=== PATIENT | male | born 1940 | race Two or more races ===

== ENCOUNTER 2025-02-10 04:41 | Emergency (ER) | payer MEDICARE, MEDICAID, SELFPAY ==
[2025-02-10] VITALS (7 sets, daily range): BP systolic 99–128; BP diastolic 62–97; PULSE 76–99; RESP 16–18; TEMP 36.5–37.1; O2SAT 95–98; BMI 107.5
--- NOTE | 2025-02-10 05:26 | EKG_ITS ---
[facility] Test Date: 2025-02-10 Pat Name: CHEIKH LEW Department: Room: - Gender: Male Division Director: : 1940 Requested By: Hunter Cote Order Number: [id number] Reading MD: Hunter Cote Measurements Intervals [place] Rate: 96 P: 39 NH: 183 QRS: -20 QRSD: 124 T: -6 QT: 336 QTc: 426 Interpretive Statements SINUS RHYTHM RIGHT BUNDLE BRANCH BLOCK [120+ ms QRS DURATION, UPRIGHT V1, 40+ ms S IN I/aVL/V4/V5/V6] Compared to ECG 05/02/2020 18:10:48 Right bundle-branch block now present Sinus tachycardia no longer present T-wave abnormality no longer present /store/S0/[id number]/ecg/[id number].pdf
--- NOTE | 2025-02-10 05:26 | XR_ITS ---
EXAMINATION: AP chest single view TECHNIQUE: AP portable upright chest single view Date and time: February 10, 2025, 0535 hours, comparison May 02, 2020 INDICATIONS: Shortness of breath chest pain today FINDINGS: Mild enlargement cardiac contour Left perihilar basilar lung opacity consistent with pneumonia Ectatic thoracic aorta. Severe osteopenia IMPRESSION: Fairly diffuse left lung pneumonia
[2025-02-10 06:44] LABS: Collection Type, Urine Clean Catch
--- NOTE | 2025-02-10 06:51 | PD.EDSOB ---
ED SOB =RME/HPI General Chief Complaint: General Adult/Misc Complain Stated Complaint: NO COMPLAINT Time Seen by Provider: 02/10/25 06:44 Arrival date/time: 02/10/25 04:41 Limitations: no limitations RME / HPI RME / HPI Narrative: DR. 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 He presents to the Emergency Department with complaints of persistent shortness of breath since his surgery on 02/08. He denies chest pain, fever, or chills but reports a cough ongoing for about one month. Patient is currently on Eliquis, Jardiance, insulin, and metformin. Related Data Previous Rx's ?Medication ?Instructions ?Recorded levofloxacin 500 mg tablet 500 mg PO QDAY #6 tabs 05/03/20 levofloxacin 500 mg tablet 500 mg PO Q24H 5 days #5 tabs 02/10/25 Allergies Allergy/AdvReac Type Severity Reaction Status Date / Time No Known Allergies Allergy Verified 05/02/20 17:20 Review of Systems Review of Systems Systems Reviewed: All systems reviewed, normal except as documented Past Medical History Past Medical History CARDIAC: Positive Cardiac Disorders ENDOCRINE: Positive Diabetes Mellitus Type 2 Social History SMOKING STATUS: Never smoker SUBSTANCE USE: does not use ALCOHOL: Never ED Exam General Limitations: Present no limitations General appearance: Present alert and in no apparent distress Head Head exam: Present atraumatic, normocephalic and normal inspection Eye Eye exam: Present normal appearance, PERRL and EOMI ENT ENT exam: Present normal exam, normal oropharynx and mucous membranes moist Neck Neck exam: Present normal inspection, full ROM and trachea midline Chest Chest inspection: Present normal inspection and symmetric chest wall rise Respiratory Respiratory exam: Present respiratory distress (Decreased air movement on the left side, no wheezing or rales noted on the right.) Cardiovascular Cardiovascular exam: Present regular rate, normal rhythm and normal heart sounds Abdominal Exam Abdominal exam: Present other (Soft, non-distended, left nephrectomy scar and vertical abdominal scar well-healed, no tenderness.) Extremities Exam Extremities exam: Present normal inspection and full ROM Back Exam Back exam: Present normal inspection and full ROM Neurological Exam Neurological exam: Present alert, oriented X3 and CN II-XII intact Psychiatric Psychiatric exam: Present normal affect and normal mood Skin Skin exam: Present warm, dry, intact and normal color Course Quality Measures none Orders Category Date Time Status CT Screening NOW Care 02/10/25 06:52 Completed EKG (ED ONLY) *Do not use* NOW Care 02/10/25 05:[address] abdomen pelvis wo con Stat Exams 02/10/25 08:[address] chest wo con Stat Exams 02/10/25 08:39 Completed EKG (ED Only) Stat Exams 02/10/25 05:26 Draft XR chest 1V portable Stat Exams 02/10/25 05:26 Completed B-Type Natriuretic Peptide Stat Lab 02/10/25 06:11 Completed Blood Culture (Lab) Stat Lab 02/10/25 07:35 Received CBC Stat Lab 02/10/25 06:11 Completed Comprehensive Metabolic Panel Stat Lab 02/10/25 06:11 Completed Drug Screen,Urine Stat Lab 02/10/25 06:30 Completed LDH (Lactate Dehydrogenase) Stat Lab 02/10/25 06:11 Completed Magnesium Stat Lab 02/10/25 06:11 Completed Partial Thromboplastin Time Stat Lab 02/10/25 06:11 Completed Prothrombin Time with INR Stat Lab 02/10/25 06:11 Completed Troponin I Stat Lab 02/10/25 06:11 Completed Urinalysis, C/S if Indicated Stat Lab 02/10/25 06:32 Completed HYDROcodone*/APAP 5/325 [[place] 5/325] Med 02/10/25 09:33 Discontinued 1 tab PO X1 ONE Levofloxacin/D5w 750Mg Ivpb [Levaquin Ivpb] Med 02/10/25 06:51 Discontinued 750 mg in 150 ml IV X1 Vital Signs Vital signs: Vital Signs Temperature 98.8 F 02/10/25 06:25 Pulse Rate 98 02/10/25 06:25 Respiratory Rate 16 02/10/25 06:25 Blood Pressure 101/71 02/10/25 06:25 Pulse Oximetry (%) 97 02/10/25 06:25 Oxygen Delivery Method Room Air 02/10/25 06:25 Shortness of Breath / Dyspnea MDM Narrative MDM Narrative:: I, Elo Mcdermott, am scribing for and in the presence of Dr. Calixto. 84-year-old male with COPD and recent nephrectomy presenting with shortness of breath and chronic cough. EKG shows sinus rhythm with rate of 96 bpm, no ischemic changes. Physical exam reveals decreased air movement on the left side, likely post-surgical or related to COPD changes. Differential includes postoperative atelectasis, pneumonia, pleural effusion, or COPD exacerbation. Plan includes a chest CTA. Patient data External records reviewed:: [facility] previous records and EMS form Clinical information provided by:: patient and EMS Social determinants that could affect healthcare access:: housing ([facility]) Patient has the following chronic illnesses:: COPD, type 2 diabetes mellitus, and recent left nephrectomy on 02/08/25. Patient is currently on Eliquis, Jardiance, insulin, and metformin. How is presenting disease/condition affected by chronic disease/condition?: exacerbated by Evaluation data The following diagnostics were reviewed and interpreted by me:: lab results, radiology exam(s) and EKG tracing(s) (EKG#1: EKG at 0600 hours. Interpreted by me: sinus rhythm, rate 96, no ischemia, right bundle branch block) Lab and/or radiology exams considered but not ordered:: none Interpretation Summary: See MDM narrative above. RADIOLOGY Procedure(s): XR chest 1V portable Accession Number(s): [id number] cc: Hunter Doty DO; Saud Martino MD~ EXAMINATION: AP chest single view TECHNIQUE: AP portable upright chest single view Date and time: February 10, 2025, 0535 hours, comparison May 02, 2020 INDICATIONS: Shortness of breath chest pain today FINDINGS: Mild enlargement cardiac contour Left perihilar basilar lung opacity consistent with pneumonia Ectatic thoracic aorta. Severe osteopenia IMPRESSION: Fairly diffuse left lung pneumonia Dictated By: Saud Martino MD Procedure(s): CT abdomen pelvis [facility] Accession Number(s): [id number] cc: Michelle Tian MD; Saud Martino MD; NO PRIMARY/FAMILY,PHYSICIAN~ Examination: CT abdomen and pelvis without contrast. Coronal 3-D reconstructions. Sagittal 2-D reconstructions. Date and time of exam: February 10, 2025, 0851 hours INDICATIONS: Abdominal pain flank pain beginning 2 days ago, history left nephrectomy. CTDI: vol (mGy): 18.3 DLP: (mGycm): 183 Technique: Axial images of the abdomen have been obtained, 3 mm slice thickness Intravenous contrast material has not been administered. Low dose protocols were performed. One or more of the following dose reduction techniques were used; automated exposure control, adjustment of the mA and/or KV according to patient size, use of iterative reconstruction technique. Findings: Mild left pleural disease No liver lesion. Absent gallbladder. No pancreatic mass. Absent left kidney with postoperative change in the left renal fossa Right parapelvic cyst, moderate right renal scar formation No bowel obstruction. Aorta normal size. No pericecal inflammatory change. No diverticulitis. Contracted urinary bladder Moderate prostatomegaly Prominent osteopenia. IMPRESSION: Postoperative mild change in the left renal fossa Moderate right renal parenchymal scar formation. No bowel obstruction No pericecal inflammatory change or diverticulitis. Moderate prostatomegaly Dictated By: Saud Martino MD Procedure(s): CT chest [facility] Accession Number(s): [id number] cc: Michelle Tian MD; Saud Martino MD; NO PRIMARY/FAMILY,PHYSICIAN~ History examination: CT chest without intravenous contrast 2-D sagittal and coronal reconstructions Exam date and time: February 10, 2025, 0848 hours INDICATIONS: Chest pain shortness of breath back pain beginning 2 days ago, history left nephrectomy CTDI:vol (mGy) 20.71 DLP: (mGycm) 688 Comparison May 02, 2020 Technique: Multiple axial sections of the thorax have been obtained. Sections have been obtained, 3 mm slice thickness. Mediastinal and lung density settings have been obtained. 2-D sagittal, coronal images obtained. Low dose protocols were performed. One or more of the following dose reduction techniques were used; automated exposure control, adjustment of the mA and/or KV according to patient size, use of iterative reconstruction technique. Findings: Soft tissue density presternal No thoracic aortic aneurysmal dilatation Pulmonary artery segments are not enlarged. No paratracheal tracheobronchial or bronchopulmonary adenopathy. Mild enlargement left ventricle. Small left pleural effusion. COPD with areas of airspace destruction. 10 mm pulmonary nodule left lower lobe 6 mm pulmonary nodule right lower lobe 2 mm pulmonary nodule right upper lobe 4 mm pulmonary nodule right upper lobe 4 mm pleural-based pulmonary nodule right lower lobe Dilated bronchi in the right lower lobe Atelectasis versus mild pneumonia left base No visualized liver lesion Absent gallbladder No pancreatic mass Mild inflammation in the anterior left renal fossa without definite solid mass lesion No bowel obstruction Mild fluid in the left renal fossa, I do not have history as to the date of the nephrectomy Severe osteopenia Moderate diffuse thoracic degenerative disc disease Subacute fracture deformity of the body of the sternum, axial image 130 IMPRESSION: COPD Mild pneumonia left base with small left pleural effusion. Numerous noncalcified pulmonary nodules, consider early pulmonary nodular metastatic disease, recommend 6-month follow-up Subacute healing fracture body of the sternum with soft tissue contusion anterior to the sternum Mild right base bronchiectasis Mild inflammation or fluid in the anterior left renal fossa, I do not have a history as to the date of the patient's nephrectomy Severe osteopenia Moderate diffuse thoracic degenerative disc disease: Dictated By: Maclennan,Saud W MD Medications / Prescriptions Medications or Prescriptions considered but not ordered:: none Medication administrations:: Medication Administration History Discontinued Medications Hydrocodone Bitart/Acetaminophen (Hydrocodone/Apap 5/325 Tablet) 1 tab PO X1 ONE Stop: 02/10/25 09:34 Last Admin: 02/10/25 09:43 Dose: 1 tab Documented By: JOSE Levofloxacin/Dextrose (Levaquin Ivpb) 750 mg in 150 mls @ 100 mls/hr IV X1 ONE Stop: 02/10/25 08:20 Last Infusion: 02/10/25 09:42 Dose: Infused Documented By: Admin: 02/10/25 07:53 Dose: 100 mls/hr Documented By: JOSE see above Consultations Consultation(s) initiated? (list below): No Diagnosis Shortness of Breath Differential Diagnosis: other (Postoperative atelectasis, pneumonia, pleural effusion, COPD exacerbation.) Most likely diagnosis given after review of the tests above:: Community acquired pneumonia Admission Indicated Admission indicated?: not indicated Admission Request Was there a request for admission?: No Disposition Plan Disposition Plan: Discharge Discharge Attestation Discharge Attestation: The patient and all family members were given an opportunity to ask questions and understood the discharge instructions. Discharge instructions specifically effects, indications for sooner follow up or return to the emergency department, and the expected course of current diagnosis. Patient condition: Stable Discharge Plan Plan Patient Disposition: Xfer Skilled Nsg Fac (SNF) Patient condition on transfer: Stable Prescriptions/Referrals Prescriptions/Med Rec: New levofloxacin 500 mg tablet 500 mg PO Q24H 5 Days Qty: 5 0RF No Action levofloxacin 500 mg tablet 500 mg PO QDAY Qty: 6 0RF Problem List Clinical Impression: Community acquired pneumonia Patient/Caregiver Discharge Instructions Discharge Activity: walk with walker only Education Materials: ED Pneumonia (Adult) Print Language: Greenlandic Stand Alone Forms: Leigh Award Info., Patient Portal Info Letter
[2025-02-10 07:10] LABS: Basophils # (Auto) 0.1 Thou/mm3 (0.0-0.2); Basophils % (Auto) 1 % (0-2.5); Eosinophils # (Auto) 0.4 Thou/mm3 (0.0-0.5); Eosinophils % (Auto) 4 % (0-10); Hematocrit 29.4 % (41.0-53.0); Hemoglobin 9.3 g/dL (13.5-16.0); Immature Granulocytes Auto 0.05 Thou/mm3 (0.00-0.00); Lymphocytes # (Auto) 2.7 Thou/mm3 (1.0-4.8); Lymphocytes % (Auto) 27 % (10-50); Mean Corpuscular HGB Conc 31.6 g/dl (31.0-37.0); Mean Corpuscular Hemoglobin 31.1 pg (25.0-35.0); Mean Corpuscular Volume 98 fL (80-100); Monocytes # (Auto) 1.2 Thou/mm3 (0.0-0.8); Monocytes % (Auto) 12 % (0-12); Neutrophils # (Auto) 5.6 Thou/mm3 (1.8-7.7); Neutrophils % (Auto) 56 % (37-80); Nucleated Red Blood Cell # 0.00 Thou/mm3 (0.00-0.00); Nucleated Red Blood Cell % 0 /100 WBC (0); Platelet Count 643 Thou/mm3 (140-440); RDW Standard Deviation 66.6 fL (35.1-43.9); Red Blood Count 2.99 Miln/mm3 (4.50-5.90); White Blood Count 9.9 Thou/mm3 (3.8-10.6)
[2025-02-10 07:14] LABS: Bilirubin,Urine Negative (Negative); Blood,Urine Negative (Negative); Clarity,Urine Clear (Clear/Hazy); Color,Urine Lt-Yellow (Lt Yel-Yel); Culture Indicated,Urine Not Indicated; Glucose, Urine 4+ (Negative); Ketones,Urine Negative (Negative); Leukocyte Esterase,Urine Positive (Negative); Nitrite,Urine Negative (Negative); PH,Urine 6.5 (5.0-7.0); Protein,Urine Trace (Neg - Trace); RBC,Urine 1 /hpf (0-3); Specific Gravity,Urine 1.016 (1.001-1.035); Squamous Epithelial Cell,Urine < 1 /hpf (0-5); Urobilinogen,Urine 2.0 mg/dL (0.0-1.0); WBC,Urine 4 /hpf (0-5)
[2025-02-10 07:18] LABS: INR 1.1 (0.9-1.3); Partial Thromboplastin Time 32.6 Seconds (22.0-36.0); Prothrombin Time 11.9 Seconds (9.0-12.2)
[2025-02-10 07:43] LABS: Alanine Aminotransferase 26 U/L (10-49); Albumin, Serum 3.8 gm/dL (3.4-4.8); Albumin/Globulin Ratio 1.1 (1.2-2.2); Alkaline Phosphatase 127 U/L (46-116); Anion Gap 9 (7-16); Aspartate Amino Transferase 40 U/L (0-34); BUN/Creatinine Ratio 16 Ratio (12-20); Bilirubin,Total 0.3 mg/dL (0.3-1.2); Blood Urea Nitrogen 22 mg/dL (9-23); Calcium 8.8 mg/dL (8.3-10.6); Calcium (Corrected) 9.0 mg/dL (8.5-10.1); Carbon Dioxide 25.1 mMol/L (20.0-31.0); Chloride 100 mMol/L (98-107); Creatinine (Component) 1.4 mg/dL (0.6-1.3); Estimated Creatinine Clearance 38.9 mL/min (>60); Globulin 3.5 gm/dL (2.3-3.5); Glucose 86 mg/dL (74-106); Magnesium 2.1 mg/dL (1.6-2.6); Osmolality,Calculated 270 (275-295); Potassium 5.6 mMol/L (3.4-5.1); Sodium 134 mMol/L (136-145); Total Protein 7.3 gm/dL (5.7-8.2); Troponin I < 0.020 ng/mL (0.0-0.045); eGFR 50 See Note
[2025-02-10 07:46] LABS: B-Type Natriuretic Peptide 23 pg/mL (0-100)
[2025-02-10] MEDS: LEVOFLOXACIN/D5W 750MG IVPB 750 MG/150 ML BAG 100 MG IV (07:53)
[2025-02-10 08:11] LABS: LDH (Lactate Dehydrogenase) 282 U/L (120-246)
[2025-02-10 08:18] LABS: Amphetamine/Methamp Scrn,U Negative (Negative); Barbiturate Screen,Urine Negative (Negative); Benzodiazepines Screen,Urine Negative (Negative); Benzoylecgonine Screen, Ur Negative (Negative); Fentanyl Screen,Urine Negative (Negative); Opiate Screen,Urine Negative (Negative); THC Screen,Urine Negative (Negative)
--- NOTE | 2025-02-10 08:39 | XR_ITS ---
History examination: CT chest without intravenous contrast 2-D sagittal and coronal reconstructions Exam date and time: February 10, 2025, 0848 hours INDICATIONS: Chest pain shortness of breath back pain beginning 2 days ago, history left nephrectomy CTDI:vol (mGy) 20.71 DLP: (mGycm) 688 Comparison May 02, 2020 Technique: Multiple axial sections of the thorax have been obtained. Sections have been obtained, 3 mm slice thickness. Mediastinal and lung density settings have been obtained. 2-D sagittal, coronal images obtained. Low dose protocols were performed. One or more of the following dose reduction techniques were used; automated exposure control, adjustment of the mA and/or KV according to patient size, use of iterative reconstruction technique. Findings: Soft tissue density presternal No thoracic aortic aneurysmal dilatation Pulmonary artery segments are not enlarged. No paratracheal tracheobronchial or bronchopulmonary adenopathy. Mild enlargement left ventricle. Small left pleural effusion. COPD with areas of airspace destruction. 10 mm pulmonary nodule left lower lobe 6 mm pulmonary nodule right lower lobe 2 mm pulmonary nodule right upper lobe 4 mm pulmonary nodule right upper lobe 4 mm pleural-based pulmonary nodule right lower lobe Dilated bronchi in the right lower lobe Atelectasis versus mild pneumonia left base No visualized liver lesion Absent gallbladder No pancreatic mass Mild inflammation in the anterior left renal fossa without definite solid mass lesion No bowel obstruction Mild fluid in the left renal fossa, I do not have history as to the date of the nephrectomy Severe osteopenia Moderate diffuse thoracic degenerative disc disease Subacute fracture deformity of the body of the sternum, axial image 130 IMPRESSION: COPD Mild pneumonia left base with small left pleural effusion. Numerous noncalcified pulmonary nodules, consider early pulmonary nodular metastatic disease, recommend 6-month follow-up Subacute healing fracture body of the sternum with soft tissue contusion anterior to the sternum Mild right base bronchiectasis Mild inflammation or fluid in the anterior left renal fossa, I do not have a history as to the date of the patient's nephrectomy Severe osteopenia Moderate diffuse thoracic degenerative disc disease:
--- NOTE | 2025-02-10 08:46 | XR_ITS ---
Examination: CT abdomen and pelvis without contrast. Coronal 3-D reconstructions. Sagittal 2-D reconstructions. Date and time of exam: February 10, 2025, 0851 hours INDICATIONS: Abdominal pain flank pain beginning 2 days ago, history left nephrectomy. CTDI: vol (mGy): 18.3 DLP: (mGycm): 183 Technique: Axial images of the abdomen have been obtained, 3 mm slice thickness Intravenous contrast material has not been administered. Low dose protocols were performed. One or more of the following dose reduction techniques were used; automated exposure control, adjustment of the mA and/or KV according to patient size, use of iterative reconstruction technique. Findings: Mild left pleural disease No liver lesion. Absent gallbladder. No pancreatic mass. Absent left kidney with postoperative change in the left renal fossa Right parapelvic cyst, moderate right renal scar formation No bowel obstruction. Aorta normal size. No pericecal inflammatory change. No diverticulitis. Contracted urinary bladder Moderate prostatomegaly Prominent osteopenia. IMPRESSION: Postoperative mild change in the left renal fossa Moderate right renal parenchymal scar formation. No bowel obstruction No pericecal inflammatory change or diverticulitis. Moderate prostatomegaly
[2025-02-10] MEDS: HYDROcodone/APAP 5/325 TABLET 1 TAB PO (09:43)
--- NOTE | 2025-02-10 10:30 | PC.NURSE ---
PATIENT GIVEN PO MED FOR PAIN. PATIENT NOW CURRENTLY RESTING IN NO SIGNS OF ACUTE DISTRESS. EQUAL RISE AND FALL OF CHEST NOTED. CONNECTED TO MONITORS.
--- NOTE | 2025-02-10 12:00 | PC.NURSE ---
PATIENT AT BEDSIDE
--- NOTE | 2025-02-10 16:36 | PC.NURSE ---
EMS HERE TO TRANSPORT PATIENT BACK TO [facility]. REPORT GIVEN TO EMS MED[facility]. ATTEMPTED TO CALL FACILITY 4 TIMES. NO ANSWER.
== END 2025-02-10 16:47 | disposition skilled nursing facility (03) ==
PROVIDERS: Emergency Medicine; Emergency Provider Emergency Medicine
DX: J44.0 Chronic obstructive pulmonary disease with (acute) lower respiratory infection (principal); J18.9 Pneumonia, unspecified organism; J90 Pleural effusion, not elsewhere classified; J47.0 Bronchiectasis with acute lower respiratory infection
CPT/HCPCS: 36415; 71045; 71250; 74176; 80053; 80307; 81001; 83615; 83735; 83880; 84484; 85025; 85610; 85730; 87040; 93005; 96365; 96366; 99284; J1956; A9270